=== PATIENT | male | born 2000 | race Caucasian/White ===

== ENCOUNTER 2023-11-10 20:41 | Emergency (ER) | payer BC ==
[2023-11-10] MEDS ORDERED: Albuterol/Ipratropium 3.0-0.5 MG/3 ML Neb Soln NEB STA (20:52)
[2023-11-10 21:37] LABS: CORONAVIRUS COVID-19 NAA NEGATIVE (NEGATIVE); INFLUENZA A NAA NEGATIVE (NEGATIVE); INFLUENZA B NAA NEGATIVE (NEGATIVE); RESPIRATORY SYNCYTIAL VIR NAA NEGATIVE (NEGATIVE)
== END 2023-11-10 22:10 | disposition home or self-care (01) ==
LOC: MW.ED 20:41
DX: J45.901 Unspecified asthma with (acute) exacerbation (principal); Z79.899 Other long term (current) drug therapy; Z20.822 Contact with and (suspected) exposure to COVID-19
CPT/HCPCS: 0241U; 94640; 99285; J7620-GY

== ENCOUNTER 2024-08-31 19:20 | Emergency (ER) | payer SELFPAY ==
[2024-08-31] MEDS: predniSONE 10 MG Tab PO ONE (21:16)
[2024-08-31] MEDS: Albuterol/Ipratropium 3.0-0.5 MG/3 ML Neb Soln NEB ONE (21:16)
== END 2024-08-31 22:15 | disposition home or self-care (01) ==
LOC: MW.ED 19:20
DX: J45.21 Mild intermittent asthma with (acute) exacerbation (principal); Z79.899 Other long term (current) drug therapy
CPT/HCPCS: 87635; 99285; A9270; 99283; J7620-GY; U0002

== ENCOUNTER 2024-09-26 14:19 | Emergency (ER) | payer SELFPAY ==
[2024-09-26] MEDS: Lidocaine 4% 1 each Patch TOP ONE (14:59)
[2024-09-26] MEDS: Diazepam 2 MG Tab PO ONE (14:59)
[2024-09-26] MEDS: Acetaminophen 500 MG Tab PO ONE (14:59)
[2024-09-26 15:41] LABS: APPEARANCE,URINE CLEAR; BILIRUBIN,URINE NEGATIVE (NEGATIVE); COLOR,URINE YELLOW; GLUCOSE,URINE NEGATIVE (NEGATIVE); KETONES,URINE NEGATIVE (NEGATIVE); LEUKOCYTE ESTERASE,URINE NEGATIVE (NEGATIVE); NITRITE,URINE NEGATIVE (NEGATIVE); OCCULT BLOOD,URINE TRACE-INTACT (NEGATIVE); PROTEIN,URINE NEGATIVE (NEGATIVE); UROBILINOGEN,URINE 0.2 EU/dL (<2.0)
[2024-09-26 16:09] LABS: BACTERIA,URINE FEW (NEGATIVE); EPITHELIAL CELLS,URINE RARE (NONE-FEW); MUCUS,URINE MODERATE (NONE-MOD)
== END 2024-09-26 16:34 | disposition home or self-care (01) ==
LOC: MW.ED 14:19
DX: M54.50 Low back pain, unspecified (principal); R31.9 Hematuria, unspecified; J45.909 Unspecified asthma, uncomplicated; F17.210 Nicotine dependence, cigarettes, uncomplicated; Z79.51 Long term (current) use of inhaled steroids; Z79.52 Long term (current) use of systemic steroids; Z79.899 Other long term (current) drug therapy; Z75.8 Other problems related to medical facilities and other health care
CPT/HCPCS: 81001; 99283; A9270

== ENCOUNTER 2025-01-24 18:41 | Emergency (ER) | payer SELFPAY ==
[2025-01-24] MEDS: Tetracaine HCl/PF 0.5% 4 ML Bottle EYEBOTH ONE (19:42)
[2025-01-24] MEDS: Fluorescein 1 MG Ophth Strip EYEBOTH ONE (19:42)
[2025-01-24] MEDS: Diphtheria,Pertussis(Acell),Tetanus Vaccine 0.5 ML Syringe IM ONE (19:43)
[2025-01-24] MEDS: Ketorolac 0.5% Ophth Soln 5 ML Bottle EYERT STA (20:14)
[2025-01-24] MEDS: Erythromycin Base 0.5% Ophth Oint 1 GM Tube EYERT ONE (20:15)
== END 2025-01-24 20:20 | disposition home or self-care (01) ==
LOC: MW.ED 18:41
DX: S05.02XA Injury of conjunctiva and corneal abrasion without foreign body, left eye, initial encounter (principal); J45.909 Unspecified asthma, uncomplicated; Z79.899 Other long term (current) drug therapy; Z23 Encounter for immunization; Z75.8 Other problems related to medical facilities and other health care; W20.8XXA Other cause of strike by thrown, projected or falling object, initial encounter
CPT/HCPCS: 90471; 90715; 99283; A9270; J3490